=== PATIENT | female | born 1965 | race Asian ===

== ENCOUNTER 2021-11-03 17:33 | Emergency (ER) | payer OTHER ==
[~2021-11-03] VITALS: Ht 154.9 cm; Wt 55.0 kg
[2021-11-03 17:47] VITALS: BP 139/63
[2021-11-03 19:25] LABS: HIV ANTIBODY 1&2 RAPID NON-REACTIVE (Neg)
[2021-11-05 13:54] LABS: HEP B CORE AB, TOT Negative (Negative); HEPATITIS C ANTIBODY <0.1 s/co ratio (0.0-0.9)
== END 2021-11-03 19:38 | disposition home or self-care (01) ==
LOC: ER 17:35
DX: S61.032A Puncture wound without foreign body of left thumb without damage to nail, initial encounter (principal); Z77.21 Contact with and (suspected) exposure to potentially hazardous body fluids; X58.XXXA Exposure to other specified factors, initial encounter; Y93.89 Activity, other specified; Y92.89 Other specified places as the place of occurrence of the external cause; Y99.8 Other external cause status
CPT/HCPCS: 36415; 86703; 86704; 86705; 86706; 86803; 99283